=== PATIENT | female | born 1975 | race African-American/Black ===

== ENCOUNTER → 2017-07-13 | Day surgery (SDC) | payer OTHER ==
[2017-07-08 16:09] VITALS: Ht 180.3 cm; Wt 181.8 kg
[~2017-07-13] VITALS: Ht 180.3 cm; Wt 181.8 kg
[~2017-07-13] MED LIST: FENTANYL CITRATE INJ 50 MCG/1 ML 2 ML VIAL ONE; LIDOCAINE HCL 2% 2 ML VIAL (20MG/ML) ONE; METO25TA4 PO; MIDAZOLAM HCL 1 MG/ML 2ML VIAL ONE; PANT40TA PO; PROPOFOL IV EMULSION 10 MG/ML 20 ML VIAL IV ONE; VNTHFA/IN INH
[2017-07-13 14:03] VITALS: TEMP 36.7
--- NOTE | 2017-07-13 14:26 | Endo History and Physical ---
History & Physical Date of Service: Jul 13, 2017. Chief Complaint: ABDOMINAL PAIN, RECTAL BLEEDING Referring Physician: DR. CELINE CAICEDO History of Present Illness For EGD and colonoscopy Past Surgical History Hx Cardiac Surgery: No Hx Internal Defibrillator: No Hx Pacemaker: No Hx Abdominal Surgery: Yes (BILATERAL TUBAL LIGATION) Hx of Implantable Prosthesis: No Hx Post-Op Nausea and Vomiting: No Hx Cancer Surgery: No Hx Thoracic Surgery: No Hx Orthopedic: Yes (KNEE ARTHROSCOPY) Hx Urinary Tract Surgery: No Family History Colon CA, Polyp, IBD Social History Smoking Status: Former Smoker Hx Substance Use: Yes (MARIJUANNA 1-2X WEEK & CBD OIL) Hx Alcohol Use: No Allergies Coded Allergies: Hydrocodone (Verified Allergy, Severe, VOMITED FOR 3 DAYS WITH ONE PILL, ) Oxycodone (Verified Allergy, Severe, FELT LIKE CHEST WAS GOING TO EXPLODE , 07/13/17) BEE STING (Verified Allergy, Unknown, ANAPHYLAXISIS, 07/13/17) Uncoded Allergies: RADIOACTIVE DYES (Allergy, Unknown, HOT FEELING, CHEST TIGHTNESS, SOB, ) Current Medications Reported Home Medications Medications Dose Route/Sig Max Daily Dose Days Date Category Dose Instructions Ventolin Hfa (Albuterol) 200 Puffs/34336 Mcg Aers 2 Puffs INH Q6H PRN 07/08/17 Reported Toprol Xl (Metoprolol Succinate) 25 Mg Tabcr 25 Mg PO DAILY 07/08/17 Reported PT REPORTS THAT SHE CHOSE TO STOP THIS MEDICATION ABOUT 3 WEEKS AGO BECAUSE IT MADE HER TIRED. PT REPORTS SHE LEFT HER PCP KNOW -- STATES THEY WANT HER TO TAKE IT BUT SHE DOESNT WANT TO Protonix (Pantoprazole Sodium) 40 Mg Tab 40 Mg PO QAM 07/08/17 Reported Vital Signs Weight (Kilograms): 181.82 Height (Feet): 5 Height (Inches): 11 Date Time Temp Pulse Resp B/P (MAP) Pulse Ox O2 Delivery O2 Flow Rate FiO2 07/13/17 14:03 36.7 78 20 144/92 (109) 97 Room Air Physical Exam General Appearance: + obese Respiratory/Chest: Respiratory effort: no dyspnea Cardiovascular: Heart Auscultation: RRR Abdomen: Inspection & Palpation: soft Assessment and Plan Abd pain, bleeding for EGD and colonoscopy
--- NOTE | 2017-07-13 15:10 | Discharge Instructions ---
Endoscopy Patient Instructions Date / Procedure(s) Performed Jul 13, 2017. Colonoscopy, EGD Allergy Information Coded Allergies: Hydrocodone (Verified Allergy, Severe, VOMITED FOR 3 DAYS WITH ONE PILL, ) Oxycodone (Verified Allergy, Severe, FELT LIKE CHEST WAS GOING TO EXPLODE , 07/13/17) BEE STING (Verified Allergy, Unknown, ANAPHYLAXISIS, 07/13/17) Uncoded Allergies: RADIOACTIVE DYES (Allergy, Unknown, HOT FEELING, CHEST TIGHTNESS, SOB, ) Discharge Date / Findings Jul 13, 2017. Hemorrhoids Medication Instructions Restart Stopped Medication(s): resume meds Reported Home Medications Medications Dose Route/Sig Max Daily Dose Days Date Category Dose Instructions Ventolin Hfa (Albuterol) 200 Puffs/01528 Mcg Aers 2 Puffs INH Q6H PRN 07/08/17 Reported Toprol Xl (Metoprolol Succinate) 25 Mg Tabcr 25 Mg PO DAILY 07/08/17 Reported PT REPORTS THAT SHE CHOSE TO STOP THIS MEDICATION ABOUT 3 WEEKS AGO BECAUSE IT MADE HER TIRED. PT REPORTS SHE LEFT HER PCP KNOW -- STATES THEY WANT HER TO TAKE IT BUT SHE DOESNT WANT TO Protonix (Pantoprazole Sodium) 40 Mg Tab 40 Mg PO QAM 07/08/17 Reported Provider Instructions Activity Restrictions - No exercising or heavy lifting for 24 hours. - Do not drink alcohol the day of the procedure. - Do not drive a car or operate machinery until the day after the procedure. - Do not make any important decisions or sign important papers in 24 hours after the procedure. Following Day: - Return to full activity which may include returning to work/school. Diet Start your diet with liquids and light foods (jello, soup, juice, toast). Then eat your usual diet if not nauseated. Treatment For Common After Affects For mild abdominal pain, bloating, or excessive gas: - Rest - Eat lightly - Lie on right side Follow-Up Information Follow-up with DR. CELINE CAICEDO as scheduled Anesthesia Information What You Should Know You have had a procedure that required some medicine to reduce anxiety and discomfort. This treatment is called moderate sedation. After receiving the treatment, you may be sleepy, but you will be able to breathe on your own. The effects of the treatment may last for several hours. Follow these instructions along with Activity/Diet recommendations noted above: * Do NOT do anything where dizziness or clumsiness would be dangerous. * Rest quietly at home today, then you can be up and about tomorrow. * Have a responsible person stay with you the rest of today. * You may have had an I.V. today. If so, you may take the dressing off later today. Recommendations Call your doctor if: * Trouble breathing * Continuous vomiting for more than 24 hours * Temperature above 101 degrees * Severe abdominal pain or bloating * Pain not relieved by pain medicine ordered * There is increased drainage or redness from any incision * A large amount of rectal bleeding greater than 2-3 tablespoons. (If you had a polyp/s removed or have hemorrhoids, a small amount of blood - from the rectum is to be expected.) * You have any unanswered questions or concerns. IN THE EVENT OF A SERIOUS EMERGENCY, GO TO THE NEAREST EMERGENCY ROOM Your discharge instructions were prepared by provider Daniel Fletcher. Patient Instructions Signature Page Srinivasa Perez Patient (or Guardian) Signature/Date: I have read and understand the instructions given to me by my caregivers. Caregiver/RN/Doctor Signature/Date: The above-named patient and/or guardian has received patient instructions on this date. + Original Patient Signature Page (only) stays with chart. Please make copy for patient.
--- NOTE | 2017-07-13 15:14 | GI REPORT ---
Procedure Date: 07/13/2017 2:34 PM Procedure: Upper GI endoscopy Indications: Generalized abdominal pain, Hematochezia Medicines: Midazolam 2 mg IV, Fentanyl 100 micrograms IV, Propofol total dose 450 mg IV, Lidocaine 80 mg IV Complications: No immediate complications. Estimated Blood Loss: Estimated blood loss: none. Procedure: Pre-Anesthesia Assessment: - Prior to the procedure, a History and Physical was performed, and patient medications, allergies and sensitivities were reviewed. The patient's tolerance of previous anesthesia was reviewed. - The risks and benefits of the procedure and the sedation options and risks were discussed with the patient. All questions were answered and informed consent was obtained. After obtaining informed consent, the endoscope was passed under direct vision. Throughout the procedure, the patient's blood pressure, pulse, and oxygen saturations were monitored continuously. The scope was introduced through the mouth, and advanced to the second part of duodenum. The upper GI endoscopy was accomplished without difficulty. The patient tolerated the procedure well. Findings: The esophagus was normal. The stomach was normal. The examined duodenum was normal. Impression: - Normal esophagus. - Normal stomach. - Normal examined duodenum. - No specimens collected. Recommendation: - Discharge patient to home (ambulatory). - Continue present medications. - Return to primary care physician PRN. Daniel Fletcher M.D. Daniel Fletcher MD 07/13/2017 3:13:37 PM This report has been signed electronically. Note Initiated On: 07/13/2017 2:34 PM I attest to the content of the Intraoperative Record and orders documented therein, exceptions below
--- NOTE | 2017-07-13 15:16 | GI REPORT ---
Procedure Date: 07/13/2017 2:33 PM Procedure: Colonoscopy Indications: Generalized abdominal pain, Rectal bleeding Medicines: Fentanyl 100 micrograms IV, Midazolam 2 mg IV, Propofol total dose 450 mg IV, Lidocaine 80 mg IV Complications: No immediate complications. Estimated Blood Loss: Estimated blood loss: none. Procedure: Pre-Anesthesia Assessment: - Prior to the procedure, a History and Physical was performed, and patient medications, allergies and sensitivities were reviewed. The patient's tolerance of previous anesthesia was reviewed. - The risks and benefits of the procedure and the sedation options and risks were discussed with the patient. All questions were answered and informed consent was obtained. After I obtained informed consent, the scope was passed under direct vision. Throughout the procedure, the patient's blood pressure, pulse, and oxygen saturations were monitored continuously. The scope was introduced through the anus and advanced to the terminal ileum. The colonoscopy was performed without difficulty. The patient tolerated the procedure well. The quality of the bowel preparation was good. Findings: The terminal ileum appeared normal. Non-bleeding internal hemorrhoids were found during endoscopy. The hemorrhoids were mild. Impression: - The examined portion of the ileum was normal. - Non-bleeding internal hemorrhoids. - No specimens collected. Recommendation: - Discharge patient to home (ambulatory). - Continue present medications. - Return to primary care physician PRN. Daniel Fletcher M.D. Daniel Fletcher MD 07/13/2017 3:15:53 PM This report has been signed electronically. Note Initiated On: 07/13/2017 2:33 PM I attest to the content of the Intraoperative Record and orders documented therein, exceptions below
--- NOTE | 2017-07-13 15:32 | Anesthesiology Progress Note ---
Anesthesia Post Op Note Date & Time Jul 13, 2017 at 15:32 Vital Signs Pain Intensity: 7 Vital Signs Past 12 Hours Date Time Temp Pulse Resp B/P (MAP) Pulse Ox O2 Delivery O2 Flow Rate FiO2 07/13/17 15:28 70 18 136/83 (100) 99 Room Air 07/13/17 15:13 72 18 141/71 (94) 98 Room Air 07/13/17 14:03 36.7 78 20 144/92 (109) 97 Room Air Notes Mental Status: alert / awake / arousable, participated in evaluation Pt Amnestic to Procedure: Yes Nausea / Vomiting: adequately controlled Pain: adequately controlled Airway Patency, RR, SpO2: stable & adequate BP & HR: stable & adequate Hydration State: stable & adequate Anesthetic Complications: no major complications apparent
[2017-07-13 15:43] VITALS: BP 132/68; PULSE 72; O2SAT 97
== END | disposition home or self-care (01) ==
LOC: C.GI 13:45
PROVIDERS: ATTEND Internal Medicine Gastroenterology
DX: R10.9 Unspecified abdominal pain (principal); K62.5 Hemorrhage of anus and rectum; K64.8 Other hemorrhoids; E66.01 Morbid (severe) obesity due to excess calories; I25.10 Atherosclerotic heart disease of native coronary artery without angina pectoris; I10 Essential (primary) hypertension; K21.9 Gastro-esophageal reflux disease without esophagitis; Z98.51 Tubal ligation status; Z80.0 Family history of malignant neoplasm of digestive organs; Z83.71 Family history of colonic polyps; Z87.891 Personal history of nicotine dependence; Z88.5 Allergy status to narcotic agent; Z91.030 Bee allergy status; Z91.041 Radiographic dye allergy status